=== PATIENT | male | born 1965 | race Caucasian/White ===

== ENCOUNTER 2019-07-12 15:59 | Emergency (ER) | payer OTHER | END 2019-07-12 17:04 | disposition home or self-care (01) | LOC: FTE 15:59 | DX: S60.561A Insect bite (nonvenomous) of right hand, initial encounter (principal); S80.862A Insect bite (nonvenomous), left lower leg, initial encounter; S70.362A Insect bite (nonvenomous), left thigh, initial encounter; L08.9 Local infection of the skin and subcutaneous tissue, unspecified; W57.XXXA Bitten or stung by nonvenomous insect and other nonvenomous arthropods, initial encounter; Y92.9 Unspecified place or not applicable | CPT/HCPCS: 99282; Z7502 ==